=== PATIENT | male | born 1980 | race Two or more races ===

== ENCOUNTER 2017-12-20 16:57 | Inpatient (IN) | payer SELFPAY ==
[~2017-12-20] VITALS: Ht 193 cm; Wt 118.2 kg
[2017-12-20] MEDS ORDERED: HYDROmorphone HCL 2 MG/ML VL ONE (20:42)
[2017-12-20] MEDS ORDERED: METOCLOPRAMIDE HCL 5MG/ml INJ 2ml VIAL ONE (20:43)
[2017-12-20] MEDS ORDERED: SODIUM CHLORIDE 0.9% 1,000 ML IV ONE ×2 (21:15→23:00)
[2017-12-20] MEDS ORDERED: METOCLOPRAMIDE HCL 5MG/ml INJ 2ml VIAL IV ONE (21:15)
[2017-12-20] MEDS ORDERED: HYDROmorphone HCL 2 MG/ML VL IV ONE (21:15)
[2017-12-20 21:22] LABS: Basophils # (auto) 0 uL; Basophils % (auto) 0.3 % (0.0-2.0); Eosinophils # (auto) 0.2 uL; Eosinophils % (auto) 1.2 % (0.0-7.0); Hematocrit 48.3 % (41.0-53.0); Hemoglobin 16.5 g/dL (13.5-17.5); Mean Corpuscular Hemoglobin 27.9 pg (28.0-32.0); Mean Corpuscular Hgb Conc. 34.1 g/dL (32.0-36.0); Mean Corpuscular Volume 81.8 fL (80.0-100.0); Monocytes # (auto) 1.3 uL; Monocytes % (auto) 10.2 % (0.0-12.0); Neutrophils # (auto) 9.6 uL; Neutrophils % (auto) 73.3 % (37.0-80.0); Platelet Count (auto) 191 10^3/uL (140-450); Red Cell Distribution Width 13.7 % (11.8-14.3); White Blood Cell 13.1 10^3/uL (4.4-10.8)
[2017-12-20 21:36] LABS: BUN/Creatinine Ratio 11.6; Bilirubin, Total 0.6 mg/dL (0.2-1.0); Calcium 8.9 mg/dL (8.5-10.1); Potassium 3.8 mmol/L (3.5-5.1); Total Protein 8.5 g/dL (6.4-8.2)
[2017-12-20] MEDS ORDERED: cloNIDine HCL 0.1 MG TAB PO ONE (23:00)
[2017-12-20] MEDS ORDERED: ONDANSETRON HCL 4 MG/2 ML VIAL IV PRN (23:15)
[2017-12-20] MEDS ORDERED: TAMSULOSIN HYDROCHLORIDE 0.4 MG CAP PO ONE (23:15)
[2017-12-20] MEDS ORDERED: ACETAMINOPHEN 500 MG TAB PO PRN (23:15)
[2017-12-20] MEDS ORDERED: InsuLIN REG 1unit/0.01ml Soln (100units/ml) IV ONE (23:15)
[2017-12-20] MEDS ORDERED: MORPHINE SULFATE 4 MG/ML SYR/VIAL IV PRN (23:15)
[2017-12-20] MEDS ORDERED: DEXTROSE (50%) 50ML SYRG IV PRN (23:15)
[2017-12-20] MEDS ORDERED: KETOROLAC TROMETH 30 MG/ML 1ML VIAL IV ONE (23:30)
[2017-12-21] VITALS (7 sets, daily range): BP systolic 120–161; BP diastolic 64–96
[2017-12-21] MEDS: ACCU-CHEK COMFORT CURVE STRIP VI SCH ×4 (06:19→21:40)
[2017-12-21] MEDS: InsuLIN REG 1unit/0.01ml Soln (100units/ml) SC SCH ×4 (06:20→21:40)
[2017-12-21 07:11] LABS: Basophils # (auto) 0 uL; Basophils % (auto) 0.3 % (0.0-2.0); Eosinophils # (auto) 0 uL; Eosinophils % (auto) 0.3 % (0.0-7.0); Hematocrit 40.2 % (41.0-53.0); Hemoglobin 13.9 g/dL (13.5-17.5); Lymphocytes % (auto) 19.7 % (10.0-50.0); Mean Corpuscular Hemoglobin 28.7 pg (28.0-32.0); Mean Corpuscular Hgb Conc. 34.7 g/dL (32.0-36.0); Mean Corpuscular Volume 82.8 fL (80.0-100.0); Monocytes # (auto) 1.2 uL; Monocytes % (auto) 11.3 % (0.0-12.0); Neutrophils % (auto) 68.4 % (37.0-80.0); Nucleated Red Blood Cells % 0.1 %; Platelet Count (auto) 149 10^3/uL (140-450); Red Blood Cells 4.86 10^6/uL (4.5-5.90); Red Cell Distribution Width 13.4 % (11.8-14.3); White Blood Cell 10.2 10^3/uL (4.4-10.8)
[2017-12-21 07:15] LABS: BUN/Creatinine Ratio 11.7; Potassium 4.6 mmol/L (3.5-5.1)
[2017-12-21] MEDS: cefTRIAXone 1GM/10ml IVPUSH 10 ML IV SCH (09:39)
[2017-12-21 10:00] LABS: Urine Bacteria FEW /hpf (None Seen); Urine Blood 3+ /uL (Negative); Urine Specific Gravity 1.033 (1.001-1.035); Urine WBC 11 /hpf (0 - 3)
[2017-12-21] MEDS ORDERED: LISINOPRIL 20 MG TAB PO SCH (10:00)
[2017-12-21] MEDS ORDERED: INSULIN 70/30 1unit/0.01ml Susp (100units/ml) SC ONE (11:45)
[2017-12-21 12:11] LABS: INR 0.97 (0.9-1.15); Partial Thromboplastin Time 25.5 sec (22.64-33.71); Prothrombin Time 10.6 sec (9.37-12.3)
[2017-12-21] MEDS: SODIUM CHLORIDE 0.9% 1,000 ML IV SCH ×2 (12:19→20:20)
[2017-12-21] MEDS: hydrALAZINE HCL 25 MG TAB PO SCH ×2 (13:32→21:40)
[2017-12-21] MEDS: TAMSULOSIN HYDROCHLORIDE 0.4 MG CAP PO SCH (17:52)
[2017-12-21] MEDS: INSULIN 70/30 1unit/0.01ml Susp (100units/ml) SC SCH (17:54)
[2017-12-21] MEDS: HYDROcodone-ACET 5/325MG TAB PO PRN (20:19)
[2017-12-22] MEDS: HYDROcodone-ACET 5/325MG TAB PO PRN ×2 (02:26→13:32)
[2017-12-22 05:30] VITALS: BP 153/88
[2017-12-22] MEDS: SODIUM CHLORIDE 0.9% 1,000 ML IV SCH ×3 (05:55→20:00)
[2017-12-22] MEDS: hydrALAZINE HCL 25 MG TAB PO SCH ×3 (06:10→21:50)
[2017-12-22] MEDS: ACCU-CHEK COMFORT CURVE STRIP VI SCH ×4 (06:36→21:51)
[2017-12-22] MEDS: InsuLIN REG 1unit/0.01ml Soln (100units/ml) SC SCH ×4 (06:36→21:51)
[2017-12-22 07:54] LABS: BUN/Creatinine Ratio 10.2; Potassium 4.2 mmol/L (3.5-5.1)
[2017-12-22 08:15] VITALS: BP 162/93
[2017-12-22] MEDS: cefTRIAXone 1GM/10ml IVPUSH 10 ML IV SCH (08:44)
[2017-12-22] MEDS: INSULIN 70/30 1unit/0.01ml Susp (100units/ml) SC SCH ×2 (08:45→18:06)
[2017-12-22 09:00] VITALS: BP 164/94
[2017-12-22] MEDS ORDERED: ONDANSETRON ODT 4 MG TAB PO PRN (10:00)
[2017-12-22] MEDS: amLODIPine BESYLATE 5 MG TAB PO SCH (11:50)
[2017-12-22] MEDS ORDERED: MANNITOL 20 % (20GM/100ML) 62.5 ML IV ONE (12:15)
[2017-12-22 13:00] VITALS: BP 162/93
[2017-12-22 16:46] VITALS: BP 138/73
[2017-12-22] MEDS: TAMSULOSIN HYDROCHLORIDE 0.4 MG CAP PO SCH (17:56)
[2017-12-22 21:51] VITALS: BP 144/76
[2017-12-23 04:32] VITALS: BP 120/59
[2017-12-23] MEDS: InsuLIN REG 1unit/0.01ml Soln (100units/ml) SC SCH (06:19)
[2017-12-23] MEDS: hydrALAZINE HCL 25 MG TAB PO SCH (06:19)
[2017-12-23] MEDS: ACCU-CHEK COMFORT CURVE STRIP VI SCH (06:19)
[2017-12-23 06:52] LABS: BUN/Creatinine Ratio 10.7; Calcium 8.1 mg/dL (8.5-10.1); Potassium 3.7 mmol/L (3.5-5.1)
[2017-12-23 08:00] VITALS: BP 133/73
[2017-12-23] MEDS: INSULIN 70/30 1unit/0.01ml Susp (100units/ml) SC SCH (08:17)
[2017-12-23 09:00] VITALS: BP 132/77
[2017-12-23] MEDS: amLODIPine BESYLATE 5 MG TAB PO SCH (09:42)
[2017-12-23] MEDS ORDERED: AML5T PO (09:54)
[2017-12-23] MEDS: SODIUM CHLORIDE 0.9% 1,000 ML IV SCH (10:49)
[2017-12-23 13:00] VITALS: BP 145/87
== END 2017-12-23 13:30 | disposition home or self-care (01) | DRG 638 ==
LOC: ER 17:05 → OVERFLOW 17:06 → CENTRAL 23:40
PROVIDERS: ADMIT Nurse Practitioner Family; ATTEND Internal Medicine
DX: E11.65 Type 2 diabetes mellitus with hyperglycemia (principal); N13.2 Hydronephrosis with renal and ureteral calculous obstruction; N17.9 Acute kidney failure, unspecified; E66.3 Overweight; J45.909 Unspecified asthma, uncomplicated; I10 Essential (primary) hypertension; J06.9 Acute upper respiratory infection, unspecified; Z79.84 Long term (current) use of oral hypoglycemic drugs; Z68.31 Body mass index [BMI] 31.0-31.9, adult; Z83.3 Family history of diabetes mellitus
CPT/HCPCS: 36415; 71045; 74176; 80048; 80053; 81001; 82150; 82962; 83036; 83690; 84443; 85025; 85610; 85730; 87086; 93005; 96361; 96374; 96375; J1815; J1885; Q0162

== ENCOUNTER 2024-02-08 02:26 | Inpatient (IN) | payer BC, MEDICAID ==
[~2024-02-08] VITALS: Ht 193 cm; Wt 114.9 kg
[~2024-02-08 02:26] MED LIST: AML5T PO
[2024-02-08] MEDS: PANTOPRAZOLE 40 MG TAB PO ONE (02:45)
[2024-02-08] MEDS: ONDANSETRON ODT 4 MG TAB PO ONE (02:45)
[2024-02-08 03:07] LABS: Basophils # (auto) 0.1 10 ^3/uL (0-0.2); Basophils % (auto) 0.5 % (0.0-2.0); Eosinophils # (auto) 0.1 10 ^3/uL (0-0.8); Eosinophils % (auto) 0.8 % (0.0-7.0); Hematocrit 40.4 % (41.0-53.0); Hemoglobin 13.7 g/dL (13.5-17.5); Lymphocytes % (auto) 11.8 % (10.0-50.0); Mean Corpuscular Hemoglobin 27.3 pg (28.0-32.0); Mean Corpuscular Hgb Conc. 33.9 g/dL (32.0-36.0); Mean Corpuscular Volume 80.6 fL (80.0-100.0); Monocytes # (auto) 1.8 10 ^3/uL (0-1.3); Monocytes % (auto) 10.8 % (0.0-12.0); Neutrophils # (auto) 12.5 10 ^3/uL (1.6-8.6); Neutrophils % (auto) 76.1 % (37.0-80.0); Red Blood Cells 5.02 10^6/uL (4.5-5.90); Red Cell Distribution Width 14.4 % (11.8-14.3); White Blood Cell 16.5 10^3/uL (4.4-10.8)
[2024-02-08 03:20] LABS: Alanine Aminotransferase 53 U/L (7-40); Albumin 4.4 g/dL (3.2-4.8); Alkaline Phosphatase 155 U/L (46-116); Anion Gap 6 (5-15); Aspartate Aminotransferase 61 U/L (13-40); BUN/Creatinine Ratio 10.9 (10.0-20.0); Blood Urea Nitrogen 25 mg/dL (9-23); Calcium 9.6 mg/dL (8.7-10.4); Carbon Dioxide 28 mmol/L (20-30); Chloride 98 mmol/L (98-107); Glucose 320 mg/dL (74-106); Potassium 4.2 mmol/L (3.5-5.1); Sodium 132 mmol/L (136-145); Total Protein 7.9 g/dL (5.7-8.2)
[2024-02-08 04:21] LABS: Lipase > 3500 U/L (12-53)
[2024-02-08] MEDS: MORPHINE SULFATE 4 MG/ML SYR/VIAL IV ONE (05:45)
[2024-02-08 06:33] VITALS: PULSE 88; RESP 12; O2SAT 98
[2024-02-08] MEDS ORDERED: ONDANSETRON HCL 4 MG/2 ML VIAL IV PRN (07:00)
[2024-02-08] MEDS: SODIUM CHLORIDE 0.9% 1,000 ML IV SCH (07:00)
[2024-02-08] MEDS ORDERED: MORPHINE SULFATE INJ 2 MG/ml SYRG IV PRN (07:00)
[2024-02-08] MEDS ORDERED: DEXTROSE (50%) 50ML SYRG IV PRN (07:30)
[2024-02-08] MEDS: SODIUM CHLORIDE 0.9% 1,000 ML IVB ONE (07:32)
[2024-02-08] MEDS: PIPERACILLIN-TAZOB 3.375GM 100 ML IV ONE (09:00)
[2024-02-08 09:31] LABS: Urine Bacteria None Seen /hpf (None Seen)
[2024-02-08] MEDS: PANTOPRAZOLE 40 MG/10 ML VIAL INJ IV SCH (09:40)
[2024-02-08 09:54] LABS: Magnesium 1.9 mg/dL (1.6-2.6)
[2024-02-08 09:56] LABS: Phosphorus 3.2 mg/dL (2.4-5.1)
[2024-02-08 10:42] LABS: Protein, Urine 100.8 mg/dL (0.0-11.9)
[2024-02-08 10:45] LABS: Creatinine, Urine 81.37 mg/dL (30.0-125.0); Urine Protein/Creatinine Ratio 1.24
[2024-02-08 11:30] LABS: Urine Blood 1+ /uL (Negative); Urine Clarity Turbid (Clear); Urine Color Light-Yellow (Yellow); Urine Protein, UAD 1+ (Negative); Urine Specific Gravity 1.012 (1.001-1.035); Urine Urobilinogen Normal (Negative); Urine WBC 83 /hpf (0 - 3); Urine pH 5.5 (5.0-9.0)
[2024-02-08] MEDS: ACCU-CHEK COMFORT CURVE STRIP VI SCH (12:39)
[2024-02-08] MEDS: InsuLIN REG 1unit/0.01ml Soln (100units/ml) SC SCH (12:40)
[2024-02-08] MEDS: PIPERACILLIN-TAZOB 3.375GM 100 ML IV SCH (14:29)
[2024-02-08 18:30] VITALS: PULSE 81; RESP 16; O2SAT 99
[2024-02-08] MEDS ORDERED: DULA3INJ SC (18:47)
[2024-02-08] MEDS ORDERED: ATOR40TA52 PO (18:47)
[2024-02-08] MEDS ORDERED: LISI20TA56 PO (18:47)
[2024-02-08 19:06] VITALS: BP 163/92; PULSE 70; RESP 18; TEMP 98.7; O2SAT 98
[2024-02-08 20:10] VITALS: PULSE 74; RESP 22; O2SAT 99
[2024-02-08 21:00] VITALS: BP 153/79; PULSE 74; RESP 22; TEMP 99.8; O2SAT 99
[2024-02-08] MEDS: amLODIPine BESYLATE 5 MG TAB PO ONE (21:08)
[2024-02-09] VITALS (7 sets, daily range): BP systolic 107–133; BP diastolic 65–82; PULSE 75–95; RESP 17–20; TEMP 97.9–98.3; O2SAT 95–98
[2024-02-09 06:59] LABS: Basophils # (auto) 0.1 10 ^3/uL (0-0.2); Basophils % (auto) 0.7 % (0.0-2.0); Eosinophils # (auto) 0.1 10 ^3/uL (0-0.8); Eosinophils % (auto) 1.7 % (0.0-7.0); Hematocrit 36.3 % (41.0-53.0); Hemoglobin 12.7 g/dL (13.5-17.5); Lymphocytes # (auto) 1.8 10 ^3/uL (0.4-5.4); Mean Corpuscular Hemoglobin 28.2 pg (28.0-32.0); Mean Corpuscular Hgb Conc. 34.9 g/dL (32.0-36.0); Monocytes % (auto) 11.2 % (0.0-12.0); Neutrophils # (auto) 5.6 10 ^3/uL (1.6-8.6); Neutrophils % (auto) 65.4 % (37.0-80.0); Red Blood Cells 4.49 10^6/uL (4.5-5.90); Red Cell Distribution Width 14.6 % (11.8-14.3); White Blood Cell 8.6 10^3/uL (4.4-10.8)
[2024-02-09 07:04] LABS: Alanine Aminotransferase 99 U/L (7-40); Alkaline Phosphatase 155 U/L (46-116); Amylase 227 U/L (30-118); Anion Gap 6 (5-15); BUN/Creatinine Ratio 11.1 (10.0-20.0); Blood Urea Nitrogen 19 mg/dL (9-23); Calcium 9.1 mg/dL (8.5-10.1); Carbon Dioxide 26 mmol/L (20-30); Chloride 105 mmol/L (98-107); Potassium 3.9 mmol/L (3.5-5.1); Sodium 137 mmol/L (136-145)
[2024-02-09 07:05] LABS: Albumin 3.9 g/dL (3.2-4.8); Aspartate Aminotransferase 42 U/L (13-40); Bilirubin, Total 0.6 mg/dL (0.2-1.0); Total Protein 6.7 g/dL (5.7-8.2)
[2024-02-09 07:08] LABS: Glucose 204 mg/dL (74-106)
[2024-02-09 07:25] LABS: Lipase 210 U/L (12-53)
[2024-02-09] MEDS: amLODIPine BESYLATE 5 MG TAB PO SCH (10:07)
[2024-02-09] MEDS ORDERED: SIMV40TA18 PO (11:32)
[2024-02-09] MEDS: FOLIC ACID 1 MG, MULTIPLE VITAMIN 10 ML, MAGNESIUM SULF SDV 50% 8 MEQ, THIAMINE INJ 100... INJ SCH (18:45)
[2024-02-09] MEDS: D5W/SOD CHLO 0.9% 1,000 ML IV SCH (21:50)
[2024-02-10 01:00] VITALS: BP 133/79; PULSE 69; RESP 18; TEMP 98.4; O2SAT 97
[2024-02-10 05:00] VITALS: BP 121/75; PULSE 72; RESP 19; TEMP 98.1; O2SAT 99
[2024-02-10 06:26] LABS: Basophils # (auto) 0 10 ^3/uL (0-0.2); Basophils % (auto) 0.6 % (0.0-2.0); Eosinophils # (auto) 0.2 10 ^3/uL (0-0.8); Eosinophils % (auto) 2.5 % (0.0-7.0); Hematocrit 35.4 % (41.0-53.0); Hemoglobin 12.4 g/dL (13.5-17.5); Lymphocytes # (auto) 2.1 10 ^3/uL (0.4-5.4); Lymphocytes % (auto) 26.6 % (10.0-50.0); Mean Corpuscular Hemoglobin 28.4 pg (28.0-32.0); Mean Corpuscular Hgb Conc. 34.9 g/dL (32.0-36.0); Mean Corpuscular Volume 81.2 fL (80.0-100.0); Monocytes # (auto) 0.9 10 ^3/uL (0-1.3); Monocytes % (auto) 11.6 % (0.0-12.0); Neutrophils # (auto) 4.5 10 ^3/uL (1.6-8.6); Neutrophils % (auto) 58.7 % (37.0-80.0); Red Blood Cells 4.36 10^6/uL (4.5-5.90); Red Cell Distribution Width 14.2 % (11.8-14.3); White Blood Cell 7.7 10^3/uL (4.4-10.8)
[2024-02-10 06:47] LABS: Alanine Aminotransferase 67 U/L (7-40); Albumin 3.9 g/dL (3.2-4.8); Alkaline Phosphatase 129 U/L (46-116); Anion Gap 7 (5-15); Aspartate Aminotransferase 16 U/L (13-40); BUN/Creatinine Ratio 8.7 (10.0-20.0); Bilirubin, Total 0.5 mg/dL (0.2-1.0); Blood Urea Nitrogen 15 mg/dL (9-23); Carbon Dioxide 27 mmol/L (20-30); Chloride 104 mmol/L (98-107); Cholesterol 110 mg/dL (< 200); Glucose 221 mg/dL (74-106); HDL Cholesterol 26 mg/dL (40-59); LDL Cholesterol 66 mg/dL (< 100); Potassium 3.7 mmol/L (3.5-5.1); Sodium 138 mmol/L (136-145); Total Protein 6.6 g/dL (5.7-8.2); Triglycerides 131 mg/dL (< 150)
[2024-02-10 07:21] LABS: Lipase 138 U/L (12-53)
[2024-02-10 08:00] VITALS: BP 122/68; PULSE 78; RESP 16; TEMP 97.9; O2SAT 98
[2024-02-10 09:02] LABS: Hepatitis B Surface Antigen Negative (Negative)
[2024-02-10 09:23] LABS: Hepatitis C Antibody Negative (Negative)
[2024-02-10] MEDS ORDERED: PANT40T PO (11:36)
[2024-02-10 12:00] VITALS: BP 138/87; PULSE 73; RESP 16; TEMP 98; O2SAT 98
== END 2024-02-10 14:20 | disposition home or self-care (01) | DRG 871 ==
LOC: ER 02:26 → OVERFLOW 07:14 → WEST WING 18:32
PROVIDERS: ADMIT Internal Medicine; ATTEND Hospitalist
DX: A41.9 Sepsis, unspecified organism (principal); K85.20 Alcohol induced acute pancreatitis without necrosis or infection; N39.0 Urinary tract infection, site not specified; N17.9 Acute kidney failure, unspecified; E11.22 Type 2 diabetes mellitus with diabetic chronic kidney disease; E66.9 Obesity, unspecified; N18.9 Chronic kidney disease, unspecified; I12.9 Hypertensive chronic kidney disease with stage 1 through stage 4 chronic kidney disease, or unspecified chronic kidney disease; K80.20 Calculus of gallbladder without cholecystitis without obstruction; N20.0 Calculus of kidney; E21.3 Hyperparathyroidism, unspecified; F10.10 Alcohol abuse, uncomplicated; Z68.30 Body mass index [BMI] 30.0-30.9, adult; Z83.3 Family history of diabetes mellitus; Y90.0 Blood alcohol level of less than 20 mg/100 ml
CPT/HCPCS: 36415; 74181; 76705; 76775; 78226; 80053; 80061; 80320; 81001; 82150; 82306; 82570; 82962; 83036; 83605; 83690; 83735; 83970; 84100; 84156; 84300; 85025; 86803; 87040; 87086; 87340; 96365; C9113; G0378; J1815; J2543; J7042